=== PATIENT | female | born 1960 | race Caucasian/White ===

== ENCOUNTER 2017-01-29 03:17 | Observation (INO) | payer BC ==
[2017-01-29] VITALS (7 sets, daily range): BP systolic 96–115; BP diastolic 55–68; Ht 154.9 cm; Wt 77.3 kg
[~2017-01-29] VITALS: Ht 154.9 cm; Wt 77.3 kg
--- NOTE | ~2017-01-29 | HEMODYNAMI ---
PATIENT:DAYSI SMYTH V MEDICAL RECORD: [id number] : 62 LOCATION:[facility] D.2116 ADMISSION DATE: 01/29/17 Generatedon:01/29/201711:12 Patient name: DAYSI SMYTH Patient #: [id number] SSN: : Date of study: 01/29/2017 Page: Of Hemodynamic Procedure Report Patient Data Patient Demographics Procedure consent was obtained First Name: DAYSI Gender: Female Last Name: HAJA : 1960 [facility] Initial: V Age: 56 year(s) Patient #: [id number] Race: Unknown Additional ID: [id number] Contact details Address: [address] [place] [address] State: [place] City: [facility] Zip code: [address] Admission Admission Data Admission Date: 01/29/2017 Admission Time: 5:50 Room #: D.2116 Lab Results Lab Result Date: 01/29/2017 Lab Result Time: 0:00 Biochemistry Name Units Result Min Max BUN mg/dl 13 --(--*-)-- 7 18 Creatinine mg/dl 0.9 --(-*--)-- 0.6 1.3 CBC Name Units Result Min Max Hemoglobin g/dl 14.4 --(*---)-- 13.5 17.5 Procedure Procedure Types Cath Procedure Diagnostic Procedure [facility] w/Coronaries Miscellaneous Procedures Moderate Sedation up to 15 minutes Procedure Description Procedure Date Procedure Date: 01/29/2017 Procedure Start Time: 10:57 Procedure End Time: 11:11 Procedure Staff Name Function Cristopher Linares MD Performing Physician Rodrigue Alejandre RN Nurse Clyde Alonzo RT Monitor Cristi Gauthier RT Scrub Procedure Data Cath Procedure Fluoroscopy Diagnostic fluoroscopy Total fluoroscopy Time: 2.9 time: 2.9 min min Diagnostic fluoroscopy Total fluoroscopy dose: 259 dose: 259 mGy mGy Contrast Material Contrast Material Type Amount (ml) Isovue 300 58 Entry Location Entry Primary Successful Side Size Upsize Upsize Entry Closure West ccessful Closure Location (Fr) 1 (Fr) 2 (Fr) Remarks Device Remarks Radial Right 6 Fr Mechanical artery Short Compression Estimated blood loss: 10 ml Diagnostic catheters Device Type Used For End Catheter Placement Terumo 5Fr Kerhonkson 110cm Procedure catheter Procedure Complications No complications Procedure Medications Medication Administration Route Dosage Oxygen NC 2 l/min Heparin Flush Bag added to field 2 bags (1000units/500ml NS) 0.9% NaCl I.V. 100 ml/hr Radial Cocktail added to field 1 syringe (Verapomil 2mg/Nitro 400mcg/Heparin 1500units) Fentanyl I.V. 50 mcg Versed I.V. 1 mg Fentanyl I.V. 50 mcg Versed I.V. 1 mg Radial Cocktail I.A. 1 syringe (Verapomil 2mg/Nitro 400mcg/Heparin 1500units) Hemodynamics Rest HGB: 14.4 (g/dl) Heart Rate: 70 (bpm) Pressure Samples Time Site Value (mmHg) Purpose Heart Use Rate(bpm) 11:03 LV 136/-10,10 Snapshot 89 11:03 AO 99/61(75) Pullback 90 11:03 LV 135/-4,12 Pullback 90 11:04 AO 102/67(83) Snapshot 84 Gradients Valve Time Site 1 Site 2 Mean SEP/DFP Peak To Heart Use (mmHg) (sec/min) Peak Rate (mmHg) (bpm) Aortic 11:03 LV AO 22 25 36 90 135/-4,12 99/61(75) Calculations Valve P-P Mean Valve Index Valve Source Name Gradient Area Flow (cm2) Aortic 36 22 36 22 Snapshots Pre Cath Intra NCS Post Cath Vital Signs Time Heart Resp SPO2 etCO2 HD0jrct NIBP (mmHg) Rhythm Pain Sedation Rate (ipm) (%) (mmHg) (mmHg) Status Level (bpm) 10:44:13 82 17 100 0 0 132/69(103) NSR 0 (11) 10(A) , No pain 10:48:25 67 17 100 0 0 117/66(85) NSR 0 (11) 10(A) , No pain 10:52:37 68 17 100 0 0 110/64(94) NSR 0 (11) 9(A) , No pain 10:56:47 73 16 98 0 0 108/62(78) NSR 0 (11) 9(A) , No pain 11:00:55 83 18 97 0 0 111/67(85) NSR 0 (11) 9(A) , No pain 11:05:04 80 18 96 0 0 105/61(73) NSR 0 (11) 9(A) , No pain 11:09:12 81 18 96 0 0 115/67(102) NSR 0 (11) 9(A) , No pain Medications Time Medication Route Dose Verified Delivered Reason Notes Effectiveness by by 10:45:54 Oxygen NC 2 l/min Rodrigue Husain Per Hill Alejandre RN physician RN 10:46:05 Heparin Flush added 2 bags Rodrigue Rodrigue used for Bag to Hill Alejandre RN procedure (1000units/500ml field RN NS) 10:46:15 0.9% NaCl I.V. 100 Rodrigue Rodrigue Per ml/hr Hill Alejandre RN physician RN 10:46:23 Radial Cocktail added 1 Rodrigue Rodrigue used for (Verapomil to syringe Hill Alejandre RN procedure 2mg/Nitro field RN 400mcg/Heparin 1500units) 10:50:08 Fentanyl I.V. 50 mcg Rodrigue Rodrigue for sedation Hill Alejandre RN RN 10:50:15 Versed I.V. 1 mg Rodrigue Rodrigue for sedation Hill Alejandre RN RN 10:55:18 Fentanyl I.V. 50 mcg Rodrigue Rodrigue for sedation Hill Alejandre RN RN 10:55:23 Versed I.V. 1 mg Rodrigue Rodrigue for sedation Hill Alejandre RN RN 11:01:02 Radial Cocktail I.A. 1 Rodrigue Cristopher for (Verapomil syringe Hill Linares MD vasodilation 2mg/Nitro RN 400mcg/Heparin 1500units) Procedure Log Time Note 10:20:39 Rodrigue Alejandre RN sent for patient. Start room use. 10:33:47 Time tracking: Regular hours 10:33:51 Plan of Care:Hemodynamics will remain stable., Cardiac rhythm will remain stable., Comfort level will be maintained., Respiratory function will remain adequate., Patient/ family verbilizes understanding of procedure., Procedure tolerated without complication., Recovers from procedure without complications.. 10:35:14 Patient received from PCU to [facility] 1 Alert and oriented. Tansferred to table in Supine position. 10:35:15 Warm blankets applied, and brett hugger turned on for patient comfort. 10:35:16 Correct patient and procedure confirmed by team. 10:35:17 Signed procedure consent form obtained from patient. 10:35:17 ECG and BP/O2 sat monitors applied to patient. 10:35:47 Lab Result : BUN 13 mg/dl 10:35:47 Lab Result : Hemoglobin 14.4 g/dl 10:35:47 Lab Result : Creatinine 0.9 mg/dl 10:43:06 Vital chart was started 10:43:07 Full Disclosure recording started 10:45:54 Oxygen 2 l/min NC was administered by Rodrigue Alejandre RN; Per physician; 10:46:05 Heparin Flush Bag (1000units/500ml NS) 2 bags added to field was administered by Rodrigue Alejandre RN; used for procedure; 10:46:15 0.9% NaCl 100 ml/hr I.V. was administered by Rodrigue Alejandre RN; Per physician; 10:46:23 Radial Cocktail (Verapomil 2mg/Nitro 400mcg/Heparin 1500units) 1 syringe added to field was administered by Rodrigue Alejandre RN; used for procedure; 10:47:23 Baseline sample Acquired. 10:47:26 Rhythm: sinus rhythm 10:47:33 H&P Date Dictated: 01/28/2017 Within 30 days and on chart.. 10:47:33 Pre-procedure instructions explained to patient. 10:47:34 Pre-op teaching completed and patient verbalized understanding. 10:47:35 Family in waiting room. 10:47:36 Patient NPO since Midnight. 10:47:37 Is the patient allergic to Iodine/contrast media? No. 10:47:39 Is patient on blood thinner?No 10:47:41 Patient diabetic? No. 10:47:43 Patient not . Patient has had tubal. 10:47:46 Previous problem with sedation/anesthesia? No ? 10:47:47 Snore? Yes 10:47:48 Sleep apnea? No 10:47:49 Deviated septum? No 10:47:50 Opens mouth fully? Yes 10:47:52 Sticks out tongue? Yes 10:47:54 Airway obstruction? No ? 10:47:55 Dentures? No ? 10:47:57 Pre procedure: right dorsailis pedis pulse 1+ Palpable, but thready & weak; easily obliterated 10:47:59 Modified Bogdan's test Ulnar < 7 seconds 10:48:00 Patient pain scale 0/10 ?. 10:48:07 IV patent on arrival in right forearm with 0.9% NaCl at [facility]. 10:48:11 Lab results completed and on chart. 10:48:15 Right Radial & Right Groin area was prepped with chlora-prep and draped in sterile fashion 10:48:17 Alarms reviewed by R. N. 10:48:17 Sharps counted by scrub and verified by R.N. 10:48:21 Use device set Radial Dx 10:48:23 Tegaderm 4 x 4 opened to sterile field. 10:48:24 Acist Manifold opened to sterile field. 10:48:25 Acist Hand Control opened to sterile field. 10:48:27 Acist Syringe opened to sterile field. 10:48:27 Medline Cath Pack opened to sterile field. 10:48:27 Bag Decanter opened to sterile field. 10:48:28 Terumo 6Fr Slender Glidesheath opened to sterile field. 10:48:28 St Mustapha 260cm J .035 wire opened to sterile field. 10:48:29 MBrace Wrist Support opened to sterile field. 10:48:37 Cook 21G 4cm Radial Needle opened to sterile field. 10:49:48 --------ALL STOP TIME OUT------ 10:49:48 Final Timeout: patient, procedure, and site verified with staff and physician. All members of the team are in agreement. 10:49:51 Right Radial & Right Groin site verified by team. 10:49:53 Physical assessment completed. ASA score P 2 - A patient with mild systemic disease as per Cristopher Linares MD. 10:49:57 Sedation plan: IV Moderate Sedation Versed, Fentanyl 10:50:08 Fentanyl 50 mcg I.V. was administered by Rodrigue Alejandre RN; for sedation; 10:50:15 Versed 1 mg I.V. was administered by Rodrigue Alejandre RN; for sedation; 10:55:18 Fentanyl 50 mcg I.V. was administered by Rodrigue Alejandre RN; for sedation; 10:55:23 Versed 1 mg I.V. was administered by Rodrigue Alejandre RN; for sedation; 10:57:10 Procedure started. 10:57:24 Local anesthetic to right radial artery with Lidocaine 2% by Cristopher Linares MD.INITIAL ACCESS ONLY 11:00:34 A 6 Fr Short sheath was inserted into the Right Radial artery 11:01:02 Radial Cocktail (Verapomil 2mg/Nitro 400mcg/Heparin 1500units) 1 syringe I.A. was administered by Cristopher Linares MD; for vasodilation; 11::26 A Terumo 5Fr Kerhonkson 110cm catheter was advanced over the wire and used for Procedure. 11:01:37 Zero performed for pressure channel P1 11:03:32 LV angiography performed. 11:03:34 LV gram done using TODD 11:03:47 EF : 55 % 11:03:50 LV hemodynamics recorded. 11:03:53 Injector settings: Ml/sec: 5, Volume: 10, 11:04:18 LCA angiography performed. 11:05:53 RCA angiography performed. 11:06:00 Terumo TR Band Standard opened to sterile field. 11:06:28 Catheter removed. 11:06:38 Sheath removed intact; hemostasis achieved with Mechanical Compression to the Right Radial artery. 11:06:40 Procedure ended.(Physican Out) 11:06:55 Fluoroscopy time 02.90 minutes. 11:07:00 Fluoroscopy dose: 259 mGy 11:07:00 Flurop Dose total: 259 11:07:04 Contrast amount:Isovue 300 58ml. 11:07:06 Sharps counted by scrub and verified by R.N. 11:07:11 TR band inflated with 10cc of air. 11:07:12 Insertion/operative site no bleeding no hematoma. 11:07:13 Post Procedure Pulses reassessed and unchanged 11:07:16 Post-procedure physical assessment completed. ASA score P 2 - A patient with mild systemic disease as per Cristopher Linares MD. 11:07:21 Post procedure rhythm: unchanged. 11:07:24 Estimated blood loss: 10 ml 11:07:27 Post procedure instruction explained to patient.Patient verbalizes understanding. 11:07:29 Patient needs reinforcement of post procedure teaching. 11:07:35 Procedure Complication : No complications 11:07:56 Procedure and supply charges have been captured, reviewed, submitted and are correct. 11::26 Vital chart was stopped 11:11:27 See physician's report for complete and final results. 11:11:31 Report given to PCU. 11:11:35 Patient transfered to PCU with Stretcher. 11:11:38 Procedure ended. 11:11:38 Full Disclosure recording stopped 11:11:56 End room use (Document Last) Device Usage Item Name Manufacture Quantity Catalog Hospital Part Current Minimal Lot# / Number Charge Number Stock Stock Serial# Code Tegaderm 4 3M 1 [id number] 106947 124456 5 x 4 Acist Acist 1 38043 137683 820053 101827 5 Manifold [employer] Inc Acist Hand Acist 1 82297 970870 959767 829644 5 Control [employer] Inc Acist Acist 1 47952 712892 441869 451174 20 Syringe Medical [employer] Inc Medline Cardinal 1 [id number] 73096 992675 5 Cath Pack Health Bag Microtek 1 2002S 284732 34682 982849 5 [employer] Terumo 6Fr Terumo 1 [id number] 584176 939844 259513 [address] St Mustapha 1 718479 279713 002235 019928 30 260cm J .035 wire MBrace Advanced 1 140-0250-00 852797 87833 137140 5 Wrist Vascular Support Dynamics Cook 21G Cook Medical 1 [id number] 322478 217796 246654 5 4cm Radial Needle Terumo 5Fr Terumo 1 40-9099 405445 539688 629692 5 Kerhonkson 110cm catheter Terumo TR Terumo 1 [id number] 438442 755235 589741 40 Band Standard Signature Audit [place] Stage Time Signature Unsigned Intra-Procedure 01/29/2017 Clyde Alonzo 11:12:16 AM RT(R) Signatures Monitor : Clyde Alonzo RT Signature : Date : Time : [facility] [address] [place] [address]
[2017-01-29 03:41] LABS: BASOPHILS 0.5 % (0.0-2.0); EOSINOPHILS 1.4 % (0-7); HEMATOCRIT 42.5 % (36.0-48.0); HEMOGLOBIN 14.4 g/dL (12-16); LYMPHOCYTES 31.9 % (15-50); MCHC 33.9 g/dL (31.0-37.0); MCV 91.6 fL (80.0-100.0); MEAN PLATELET VOLUME 9.8 fL (7.4-10.4); MONOCYTES 10.7 % (2-11); NEUTROPHILS 55.5 % (40-80); PLATELET COUNT 286 10x3/uL (130-400); RBC 4.64 10x6/uL (4.00-5.40); RDW 12.8 % (11.5-14.5); WBC 6.5 10x3/uL (4.8-10.8)
[2017-01-29 03:53] LABS: ALBUMIN 3.6 g/dL (3.4-5.0); ALKALINE PHOSPHATASE 90 U/L (46-116); ALT (SGPT) 33 U/L (10-68); CALC OSMOLALITY 280 mosm/kg (275-300); CALCIUM 8.7 mg/dL (8.5-10.1); CARBON DIOXIDE 24.4 mmol/L (21.0-32.0); CHLORIDE - SERUM 102 mmol/L (98-107); CREATININE - SERUM 0.9 mg/dL (0.6-1.3); GLUCOSE 151 mg/dL (74-106); POTASSIUM - SERUM 3.1 mmol/L (3.5-5.1); PROTEIN - SERUM 6.6 g/dL (6.4-8.2); SODIUM 139 mmol/L (136-145); UREA NITROGEN 13 mg/dL (7-18); eGFR NON AFRICAN AMERICAN 69 mL/min (90-120)
[2017-01-29 04:05] LABS: CHOL - HDL RATIO 2.8 ratio (2.3-4.1); CHOLESTEROL, TOTAL 220 mg/dL (0-200); CKMB 1.2 U/L (0.0-3.6); CREATINE KINASE 85 UL (21-215); HDL CHOLESTEROL 79 mg/dL (32-96); LDL CHOLESTEROL 127 mg/dL (0-100); LDL-HDL RATIO 1.6 ratio (1.5-3.5); TRIGLYCERIDE 71 mg/dL (30-200)
[2017-01-29 04:06] LABS: TROPONIN-I < 0.017 ng/mL (0.000-0.060)
--- NOTE | 2017-01-29 07:49 | NUR ---
TRANSFERED FROM ER BY W/Cleve HAWKINS TO ROOM. CALL LIGHT IN REACH. WILL CONT. PLAN OF CARE.
[2017-01-29] MEDS ORDERED: VITAMIN D250000 UNIT PO (07:53)
--- NOTE | 2017-01-29 09:33 | NUR ---
PT TO [facility] VIA BED IN STABLE CONDITION
--- NOTE | 2017-01-29 11:25 | NUR ---
RECEIVED PT BACK FROM [facility] IN STABLE CONDITION TR BAND IN PLACE WITH BRACE OVER IT NO SIGNS OF BLEEDING VSS NAD NOTED
--- NOTE | 2017-01-29 16:45 | NUR ---
TR BAND REMOVED AND OCCLUSIVE DRSG APPLIED SALINE LOCK DCD TO RAC WITH 20 GA IV CATHETER INTACT SITE FRR OF REDNESS OR EDEMA NOTED AT SITE PT TOLERATED WELL
--- NOTE | 2017-01-29 17:00 | NUR ---
REVIEWED DISCHARGE INSTRUCTIONS PT STATED UNDERSTANDING COPY GIVEN TO PT PT DISCHARGED HOME IN STABLE CONDITION WITH ALL PERSONAL BELONGINGS VIA W/C
--- NOTE | 2017-01-30 14:54 | OP ---
PATIENT NAME: DAYSI SMYTH V MEDICAL RECORD: [id number] :62 LOCATION:D.M2 D.2116 ADMISSION DATE:01/29/17 SURGEON: ALLA VILLANUEVA M.D. DATE OF OPERATION: 01/29/2017 Catheterization Report PROCEDURES PERFORMED: 1. Selective coronary angiography. 2. Left heart catheterization with ventriculogram. INDICATION: A 56-year-old woman, who presents with unstable angina. EQUIPMENT USED: A 5-Mexican [place] catheter. TECHNIQUE: A 6-Mexican sheath was inserted in retrograde fashion in the right radial artery. Next, selective coronary angiography was performed in standard views using 5-Mexican [place] catheter. Left heart catheterization performed using [place] catheter as well. CORONARY ANATOMY: 1. Left main: Left main trunk is moderate in caliber. It gives rise to the LAD and circumflex. There is no obstruction. 2. LAD: This is a large caliber vessel extending to the apex. It is a smooth-walled vessel. It appears angiographically normal. 3. Circumflex: This vessel is moderate in caliber. It provides a lateral branch in the mid segment. This vessel is smooth-walled and angiographically normal. 4. Right coronary artery: This vessel is moderate in caliber and dominant. It is a smooth-walled vessel and angiographically normal. 5. Left ventricle: Left ventricle is normal in size and function. No wall motion abnormalities are noted. Estimated ejection fraction is 55%. IMPRESSION: 1. Normal coronary arteries. 2. Normal left ventricular function. TRANSINT:[id number] Voice Confirmation ID: [id number] DOCUMENT ID: [id number] ALLA VILLANUEVA M.D. 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
== END 2017-01-29 17:00 | disposition home or self-care (01) ==
LOC: D.ER 03:17 → OBSVTIME 05:50 → D.M2 05:50
PROVIDERS: Emergency Medicine; ADMIT Internal Medicine Cardiovascular Disease
DX: R07.89 Other chest pain (principal); Z82.49 Family history of ischemic heart disease and other diseases of the circulatory system

== ENCOUNTER → 2017-06-02 15:12 | Outpatient (CLI) | payer BC ==
[2017-01-29 07:59] VITALS: BMI 32.2
[~2017-06-02 15:12] MED LIST: VITAMIN D250000 UNIT PO
== END | disposition home or self-care (01) ==
LOC: D.US 15:12
DX: R22.1 Localized swelling, mass and lump, neck (principal)